=== PATIENT | male | born 1970 | race Caucasian/White ===

== ENCOUNTER 2017-02-17 22:02 | Emergency (ER) | payer OTHER ==
[2017-02-17 22:17] VITALS: BP 144/95; PULSE 74; RESP 16; TEMP 98.2; O2SAT 96
--- NOTE | 2017-02-17 22:19 | EDPHY ---
H & P Time Seen by Provider: 02/17/17 22:11 HPI/ROS: CHIEF COMPLAINT: Right ankle pain HISTORY OF PRESENT ILLNESS: The patient is a 46-year-old Man who comes to the emergency department complaining pain over his right ankle and foot that is gradually increased over the last 2 days. States that few days ago he was jumping on a trampoline with his daughter noticed some slight pain. This seemed to improved. Yesterday he did martial arts and felt fine afterwards with this morning woke up and significant pain. He does not have any bony tenderness but he does have pain with palpation just anterior to the head of his fibula or with dorsiflexion of his foot. Mild swelling, no rashes signs of infection. No fevers. REVIEW OF SYSTEMS: Constitutional: denies: chills, fever, recent illness, recent injury EENTM: denies: blurred vision, double vision, nose congestion Respiratory: denies: cough, shortness of breath Cardiac: denies: chest pain, irregular heart rate, lightheadedness, palpitations Gastrointestinal/Abdominal: denies: abdominal pain, diarrhea, nausea, vomiting, blood streaked stools Genitourinary: denies: dysuria, frequency, hematuria, pain Musculoskeletal: See HPI Skin: denies: lesions, rash, jaundice, bruising Neurological: denies: headache, numbness, paresthesia, tingling, dizziness, weakness Hematologic/Lymphatic: denies: blood clots, easy bleeding, easy bruising Immunologic/allergic: denies: HIV/AIDS, transplant EXAM: GENERAL: Well-appearing, well-nourished and in no acute distress. HEAD: Atraumatic, normocephalic. EYES: Pupils equal round and reactive to light, extraocular movements intact, sclera anicteric, conjunctiva are normal. ENT: TMs normal, nares patent, oropharynx clear without exudates. Moist mucous membranes. NECK: Normal range of motion, supple without lymphadenopathy or JVD. LUNGS: Breath sounds clear to auscultation bilaterally and equal. No wheezes rales or rhonchi. HEART: Regular rate and rhythm without murmurs, rubs or gallops. ABDOMEN: Soft, nontender, normoactive bowel sounds. No guarding, no rebound. No masses appreciated. BACK: No CVA tenderness, no spinal tenderness, step-offs or deformities EXTREMITIES: See HPI, normal sensation in toes and capillary refill. No heel pain NEUROLOGICAL: Cranial nerves II through XII grossly intact. Normal speech, normal gait. 5/5 strength, normal movement in all extremities, normal sensation PSYCH: Normal mood, normal affect. SKIN: Warm, dry, normal turgor, no visible rashes or lesions. Source: Patient Exam Limitations: No limitations - Medical/Surgical History Hx Asthma: No Hx Chronic Respiratory Disease: No Hx Diabetes: No Hx Cardiac Disease: No Hx Renal Disease: No Hx Cirrhosis: No Hx Alcoholism: No Hx HIV/AIDS: No Hx Splenectomy or Spleen Trauma: No Other PMH: tonsils - Family History Significant Family History: No pertinent family hx - Social History Smoking Status: Never smoked Alcohol Use: Sober Drug Use: None Constitutional: Initial Vital Signs Temperature (C) 36.8 C 02/17/17 22:13 Heart Rate 74 02/17/17 22:13 Respiratory Rate 16 02/17/17 22:13 Blood Pressure 144/95 H 02/17/17 22:13 O2 Sat (%) 96 02/17/17 22:13 O2 Delivery Mode Room Air Allergies/Adverse Reactions: gluten Allergy (Verified 02/17/17 22:16) ibuprofen Allergy (Verified 02/17/17 22:16) Home Medications: Medication Instructions Recorded NK [No Known Home Meds] 02/17/17 Medical Decision Making - Diagnostics Imaging: I viewed and interpreted images myself ED Course/Re-evaluation: Patient has pain along the extensor digitorum longus tendon and has irritation with dorsiflexion. I suspect that he has a tendinitis in this region. Patient understands and is relieved this diagnosis. I will start him on anti- inflammatories encouraged rest. He declines further workup or testing at this time. Differential Diagnosis: Partial list of the Differential diagnosis considered include but were not limited to; tendinitis, bursitis, sprain and although unlikely based on the history and physical exam, I also considered ankle fracture, infection, gout. I discussed these differential diagnoses and the plan with the patient as well as the usual and expected course. The patient understands that the diagnosis is provisional and that in medicine we are not always correct and that further workup is often warranted. Usual and customary warnings were given. All of the patient's questions were answered. The patient was instructed to return to the emergency department should the symptoms at all worsen or return, otherwise to followup with the physician as we discussed. Departure - Departure Disposition: Home, Routine, Self-Care Clinical Impression: Tendinitis of ankle Condition: Fair Instructions: Tendinitis (ED) Referrals: Todd Figueredo MD [Medical Doctor] - As per Instructions NONE *PRIMARY CARE P,. [Primary Care Provider] - As per Instructions
== END 2017-02-17 22:50 | disposition home or self-care (01) ==
LOC: CED 22:02
DX: M77.9 Enthesopathy, unspecified (principal)
CPT/HCPCS: 73610-PO